=== PATIENT | female | born 1985 | race Caucasian/White ===

== ENCOUNTER 2021-01-27 14:49 | Emergency (ER) | payer BC, OTHER ==
[~2021-01-27] VITALS: Ht 170.2 cm; Wt 62.5 kg
[~2021-01-27 14:49] MED LIST: PHEN-893 PO
[2021-01-27] MEDS ORDERED: ondansetron/PF 4mg/2ml inj IV ONE (16:10)
[2021-01-27] MEDS ORDERED: normal saline 1000ML IV soln IVB ONE (16:10)
[2021-01-27] MEDS ORDERED: morphine 4 MG/ML inj SYRINge IV ONE (16:10)
[2021-01-27] MEDS ORDERED: ketorolac tromethamine 15mg/ml inj. IV ONE (16:10)
[2021-01-27 16:27] LABS: BASOPHILS # (AUTO) 0.1 X10'3 (0-0.2); BASOPHILS % (AUTO) 0.4 % (0-1); EOSINOPHILS % (AUTO) 0.1 % (0-6); HEMATOCRIT 40.1 % (35.0-45.0); HEMOGLOBIN 13.2 g/dl (12.0-16.0); LYMPHOCYTES % (AUTO) 6.4 % (21-51); MEAN CORPUSCULAR HEMOGLOBIN 28.9 PG (27.0-31.0); MEAN CORPUSCULAR VOLUME 87.6 FL (78-98); MEAN PLATELET VOLUME 9.3 FL (7.4-10.4); MONOCYTES # (AUTO) 0.8 X10'3 (0-0.9); MONOCYTES % (AUTO) 5.4 % (2-12); NEUTROPHILS # (AUTO) 13.5 X10'3 (1.8-7.7); NEUTROPHILS % (AUTO) 87.7 % (42-75); PLATELET COUNT 245 X10'3 (140-440); RED BLOOD COUNT 4.57 X10'6 (4.20-5.60); RED CELL DISTRIBUTION WIDTH 13.3 % (11.5-14.5); WHITE BLOOD COUNT 15.4 X10'3 (4.5-11.0)
[2021-01-27 16:40] LABS: ALANINE AMINOTRANSFERASE 24 U/L (12-78); ALBUMIN 3.9 G/DL (3.4-5.0); ALBUMIN/GLOBULIN RATIO 1.3 (1.1-1.5); ALKALINE PHOSPHATASE 47 IU/L (46-116); ANION GAP 11 (8-16); ASPARTATE AMINO TRANSFERASE 21 U/L (10-37); BILIRUBIN,TOTAL 1.3 MG/DL (0.1-1.0); BLOOD UREA NITROGEN 17 MG/DL (7-18); BUN/CREATININE RATIO 14.3 (6.6-38.0); CALCIUM 8.7 MG/DL (8.5-10.1); CHLORIDE 101 MMOL/L (99-107); CREATININE 1.19 MG/DL (0.40-0.90); GLUCOSE 99 MG/DL (70-104); LIPASE 241 U/L (73-393); POTASSIUM 3.1 MMOL/L (3.5-5.1); SODIUM 137 MMOL/L (135-145); TOTAL CARBON DIOXIDE 25.2 MMOL/L (24-32); TOTAL PROTEIN 6.8 G/DL (6.4-8.2); eGFR 52 ML/MIN
[2021-01-27] MEDS ORDERED: iohexol 300mg/ml 100ml inj. ONE (18:00)
[2021-01-27 18:01] VITALS: BP 108/59
[2021-01-27 18:41] LABS: CLARITY,URINE CLEAR (Clear); COLOR,URINE YELLOW (Yellow); GLUCOSE, URINE NEGATIVE (Neg); KETONES,URINE 40 mg/dl (Neg); LEUKOCYTE ESTERASE ,URINE NEGATIVE (Neg); NITRITES, URINE NEGATIVE (Neg); OCCULT BLOOD,URINE LARGE (Neg); PROTEIN,URINE TRACE mg/dl (Neg); UROBILINOGEN,URINE 0.2 E.U/dL (0.2-1.0)
[2021-01-27 18:42] LABS: URINE HCG NEGATIVE (NEG)
[2021-01-27 18:43] LABS: UA COLLECTION TYPE CLN CATCH MIDSTREAM
[2021-01-27 18:47] LABS: BACTERIA,URINE NONE SEEN /HPF (Neg); MUCUS STRANDS FEW /LPF (Neg); RBC,URINE 20-50 /HPF (0-2); SQUAMOUS EPITHELIAL CELL,UR FEW /LPF (FEW); WBC,URINE 0-4 /HPF (0-4)
[2021-01-27 18:49] LABS: CAL OXALATE CRYSTALS FEW /HPF (NEGATIVE)
[2021-01-27] MEDS ORDERED: HYDR-3965 PO (20:08)
[2021-01-27] MEDS ORDERED: ONDA4TAB6 PO (20:08)
[2021-01-27] MEDS ORDERED: FLO0.4C PO (20:08)
== END 2021-01-27 20:30 | disposition home or self-care (01) ==
LOC: ER 14:49
DX: N20.0 Calculus of kidney (principal); J45.909 Unspecified asthma, uncomplicated; Z98.890 Other specified postprocedural states; Z72.89 Other problems related to lifestyle; Z88.2 Allergy status to sulfonamides; Z79.899 Other long term (current) drug therapy
CPT/HCPCS: 36415; 74177; 80053; 81001; 81025; 83690; 85025; 96361; 96374; 96375; 99285; J1885; J2270; J2405; J7030; Q9967